=== PATIENT | female | born 1985 | race Caucasian/White ===

== ENCOUNTER 2018-05-04 06:19 | Day surgery (SDC) | payer BC ==
[2018-05-01 14:24] LABS: Absolute Lymphocytes (CBC) 2.2 K/uL (0.7-4.9); Absolute Monocytes 0.5 K/uL (0.1-1.3); Absolute Neutrophil 5.2 K/uL (1.8-8.0); Basophils % 0.9 % (0-1.3); Eosinophils % 1.6 % (0-4.4); Hematocrit 43.8 % (36.0-45.0); Lymphocytes % 27.5 % (15.3-44.8); MPV 8.8 fL (7.6-11.3); Monocytes % 5.8 % (3.3-12.3); RBC Red Blood Cell Count 4.86 M/uL (3.86-4.86)
[2018-05-01 14:37] LABS: Urine Appearance CLEAR; Urine Bilirubin NEGATIVE (NEG); Urine Blood NEGATIVE (NEG); Urine Color YELLOW; Urine Glucose NEGATIVE (NEG); Urine Protein NEGATIVE (NEG)
[2018-05-01 14:38] LABS: Urine Microscopic Reflex NO UMIC
--- OUTSIDE RECORDS SUMMARY | 2018-05-04 06:21 | XMS REPORT | Continuity of Care Document ---
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 Medications Medication Details Route Status Patient Ordering Order Source Instructions Provider Date Allergies, Adverse Reactions, Alerts Substance Category Reaction Severity Reaction Status Date Comments Source type Reported Immunizations Immunization Date Given Site Status Last Comments Source Updated diphtheria/pertus 10/21/2015 Left Deltoid completed [facility] sis, acel/tetanus adult Results Order Name Results Value Reference Date Interpretation Comments Source Range CHEM PANEL Amylase Lvl 42 unit/L 25 - 115 03/31 [facility] CHEM PANEL Alk Phos 72 unit/L 39 - 136 03/31 [facility] CHEM PANEL Albumin Lvl 3.9 g/dL 3.5 - 5.0 03/31 [facility] CHEM PANEL ALT 30 unit/L 0 - 65 03/31 [facility] CHEM PANEL Glucose Lvl 122 mg/dL 70 - 99 03/31 [facility] CHEM PANEL BUN 12 mg/dL 7 - 22 03/31 [facility] CHEM PANEL eGFR 91 03/31 Result Comment: The eGFR is calculated using the CKD-EPI formula. In most young, healthy individuals the eGFR will be >90 mL/ min/1.73m2. The eGFR declines with age. An eGFR of 60-89 may be normal in mL/min/1. /2014 some populations, particularly the elderly, for whom the CKD-EPI formula has not been extensively validated. Use of the eGFR is not recommended in the following populations: [facility] 3m2 Individuals with unstable creatinine concentrations, including patients and those with serious co-morbid conditions. Patients with extremes in muscle mass or diet. The data above are obtained from the National Kidney Disease Education Program (NKDEP) which additionally recommends that when the eGFR is used in patients with extremes of body mass index for purposes of drug dosing, the eGFR should be multiplied by the estimated BMI. CHEM PANEL Calcium Lvl 9.2 mg/dL 8.5 - 10.5 03/31 [facility] CHEM PANEL Bili Total 0.5 mg/dL 0.2 - 1.3 03/31 [facility] CHEM PANEL AST 15 unit/L 0 - 37 03/31 [facility] CHEM PANEL Total 7.3 g/dL 6.4 - 8.4 03/31 [facility] CHEM PANEL Sodium Lvl 141 meq/L 135 - 145 03/31 [facility] CHEM PANEL Potassium 4.2 meq/L 3.5 - 5.1 03/31 Lvl /2014 [facility] CHEM PANEL Creatinine 0.86 mg/dL 0.50 - 03/31 [facility] Lvl 1.40 [facility] CHEM PANEL CO2 28 meq/L 24 - 32 03/31 [facility] CHEM PANEL Chloride Lvl 108 meq/L 95 - 109 03/31 [facility] CHEM PANEL B/C Ratio 14 6 - 25 03/31 [facility]M PANEL Globulin 3.4 g/dL 2.0 - 4.0 03/31 [facility] CHEM PANEL A/G Ratio 1.1 0.7 - 1.6 03/31 /2014 [facility] CHEM PANEL AGAP 9.2 meq/L 10.0 - 03/31 [facility] 20.0 /2014 [facility] CHEM PANEL Lipase Lvl 96 unit/L 73 - 393 03/31 /2014 [facility] HEMATOLOGY Eosinophils 0.1 K/CMM 0.0 - 0.5 03/31 [facility] # /2015 [facility] HEMATOLOGY Monocytes # 0.5 K/CMM 0.0 - 0.8 03/31 /2014 [facility] HEMATOLOGY Lymphocytes 1.6 K/CMM 1.0 - 5.5 03/31 [facility] # /2014 [facility] HEMATOLOGY Segs 66.1 % 45.0 - 12 [facility] 75.0 /2015 [facility] HEMATOLOGY Monocytes 7.5 % 2.0 - 12.0 03/31 /2014 [facility] HEMAT[facility]Y Lymphocytes 24.7 % 20.0 - 12 MH 40.0 /2014 [facility] HEMATOLOGY Eosinophils 1.1 % 0.0 - 4.0 03/31 /2014 [facility] HEMATOLOGY Segs-Bands # 4.2 K/CMM 1.5 - 8.1 03/31 [facility] HEMATOLOGY Basophils 0.6 % 0.0 - 1.0 03/31 [facility] HEMATOLOGY Platelet 231 K/CMM 133 - 450 03/31 [facility] HEMATOLOGY RBC 4.56 M/CMM 4.20 - 03/31 5.40 /2014 [facility] HEMATOLOGY Hct 40.1 % 36.0 - 03/31 48.0 /2014 [facility] HEMATOLOGY MCV 88.0 fL 80.0 - 03/31 98.0 /2014 [facility] HEMATOLOGY Hgb 13.2 g/dL 12.0 - 03/31 16.0 /2014 [facility] HEMATOLOGY MCHC 32.9 g/dL 32.0 - 03/31 36.0 /2014 [facility] HEMATOLOGY MCH 28.9 pg 27.0 - 03/31 31.0 [facility] HEMATOLOGY MPV 7.7 fL 7.4 - 10.4 03/31 [facility] HEMATOLOGY RDW 12.5 % 11.5 - 03/31 14.5 [facility] HEMATOLOGY WBC 6.4 K/CMM 3.7 - 10.4 03/31 [facility] URINE AND UA Spec Grav >=1.030 <=1.030 03/31 [facility] *ABN* (03/31/15 12:56 PM) URINE AND UA Turbidity Slight Cloudy Clear 03/31 [facility] (03/31/15 12:56 PM) URINE AND UA Leuk Est Negative Negative 03/31 [facility] (03/31/15 12:56 PM) URINE AND UA Nitrite Negative Negative 03/31 [facility] (03/31/15 12:56 PM) URINE AND UA 0.2 EU/dL 0.1 - 1.0 03/31 [facility] Urobilinogen [facility] URINE AND UA Blood Negative Negative 03/31 [facility] (03/31/15 12:56 PM) URINE AND UA Bili Negative Negative 03/31 [facility] *NA* (03/31/15 12:56 PM) URINE AND UA Ketones Trace Negative 03/31 [facility] *ABN* (03/31/15 12:56 PM) URINE AND UA Glucose Negative Negative 03/31 [facility] (03/31/15 12:56 PM) URINE AND UA Protein Negative Negative 03/31 [facility] (03/31/15 12:56 PM) URINE AND UA pH 6.0 5.0 - 8.0 03/31 [facility] URINE AND UA Color Yellow Yellow 03/31 [facility] *NA* (03/31/15 12:56 PM) URINE AND UA WBC None Seen None Seen 03/31 [facility] (03/31/15 12:56 PM) URINE AND UA RBC None Seen 0 - 2 03/31 [facility] (03/31/15 12:56 PM) URINE AND UA Bacteria Occasional None Seen 03/31 [facility] /HPF /HPF [facility] URINE AND UA Mucus Rare /LPF None Seen 03/31 [facility] /LPF [facility] URINE AND UA Sq Epi Occasional Few /LPF 03/31 [facility] /LPF [facility] URINE CHEM U Preg Negative Negative 03/31 [facility] (03/31/15 12:56 PM) ED ED Name: ANURAG HAJI 03/31 - Abdomen/Pe Abdomen/Pelv - [facility] lvis IV is IV : [address] only CT Read by: Amadeo Roe MD Dictated Date/time: 03/31/15 14:22 Ordering Physician: Van Higuera Electronically Signed by: Amadeo Roe MD 03/31/15 14:27 FINAL REPORT ED Abdomen/Pelvis IV contrast only CT : Mar 31, 2015 12:42:00 PM. CLINICAL INDICATION: Abdominal pain, acute Comparison Examination: None. TECHNIQUE: Sequential trans-axial images were obtained with a multi- detector helical CT after intravenous administration of 100 cc of Omnipaque iodinated contrast. GI contrast was not administered. Coronal and sagittal reconstructions were performed and provided as separate series. Total JRO=744.9 mGy/cm FINDINGS: CT ABDOMEN WITH CONTRAST: The visualized lung bases are clear and there are no effusions. The heart is normal in size with a trace pericardial effusion. The liver, spleen, pancreas, gallbladder, kidneys, and adrenals appear within normal limits. There is no free intraperitoneal air or fluid. There are no distended loops of small bowel. No mesenteric adenopathy is appreciated. CT PELVIS WITH CONTRAST: The colon is relatively decompressed. The rectum, sigmoid, and urinary bladder are otherwise unremarkable. There is no free pelvic fluid or pelvic lymphadenopathy. The uterus and adnexa are unremarkable on CT assessment. The appendix is normal in caliber with no surrounding inflammatory changes. No acute bony abnormality is noted. IMPRESSION: No acute abnormality of the abdomen or pelvis is noted. SL: 24 Vital Signs Vital Sign Value Date Comments Source Systolic (mm Hg) 122 03/31/2015 [facility] Diastolic (mm Hg) 70 03/31/2015 [facility] Temperature Oral (F) 97.8 F 03/31/2015 [facility] Heart Rate 61 03/31/2015 [facility] Respitory Rate 16 03/31/2015 [facility] BMI Calculated 31.54 03/31/2015 [facility] Height 172.72 cm 03/31/2015 [facility] Weight 94.091 03/31/2015 [facility] Systolic (mm Hg) 135 03/31/2015 [facility] Diastolic (mm Hg) 81 03/31/2015 [facility] Temperature Oral (F) 97.7 F 03/31/2015 [facility] Respitory Rate 16 03/31/2015 [facility] Heart Rate 80 03/31/2015 [facility] Encounters Location Location Encounter Encounter Reason Attending ADM DC Status Source Details Type Number For Provider Date Date Visit [place] EC [id number] Van Higuera 03/31 03/31 [facility]2014 [facility] Asha [id number] Frances 08/01 08/01 [facility] /2017 [facility] Procedure Code Date Perfomer Comments Source BKA - Below knee [id number] 10/21/2015 [facility] amputation Tonsillectomy [id number] [facility]
[2018-05-04] MEDS ORDERED: Ringers Lactate 1,000 ML IV ONE (07:05)
[2018-05-04] MEDS ORDERED: PROPOFOL 200 MG/20 ML VIAL IV ONE (07:10)
[2018-05-04] MEDS ORDERED: ROCURONIUM 50 MG/5 ML VIAL IV ONE ×2 (07:10→08:49)
[2018-05-04] MEDS ORDERED: GLYCOPYRROLATE 0.2 MG/ML SYR ONE (07:11)
[2018-05-04] MEDS ORDERED: DEXAMETHASONE 10 MG/ML VIAL ONE (07:12)
[2018-05-04] MEDS ORDERED: FENTANYL CITR 250 MCG/5 ML ONE (07:12)
[2018-05-04] MEDS ORDERED: LIDOCAINE 2% MPF 5 ML VIAL ONE (07:12)
[2018-05-04] MEDS ORDERED: MIDAZOLAM HCL 2 MG/2 ML INJ ONE (07:13)
[2018-05-04] MEDS ORDERED: ONDANSETRON 4 MG/2 ML VIAL ONE ×2 (07:13→09:57)
[2018-05-04] MEDS ORDERED: FENTANYL CITR 100 MCG/2 ML ONE (08:49)
[2018-05-04] MEDS ORDERED: MORPHINE 10 MG/ML VIAL ONE (08:50)
[2018-05-04] MEDS: NA CHLORIDE 0.9% 1,000 ML ONE ×2 (08:50→09:15)
[2018-05-04] MEDS ORDERED: KETOROLAC 30 MG/ML INJ ONE (09:57)
[2018-05-04] MEDS ORDERED: NEOSTIGMINE 1 MG/ML -5 ML SYRINGE ONE (09:57)
[2018-05-04] MEDS ORDERED: EPHEDRINE SULF 50 MG/ML VIAL ONE (10:33)
[2018-05-04] MEDS ORDERED: Mastisol Adhesive Liq ONE (10:34)
[2018-05-04] MEDS ORDERED: PROMETHAZINE 25 MG/ML VIAL ONE (11:05)
[2018-05-04] MEDS ORDERED: SCOPOLAMINE HYDROBROMIDE PATCH TD ONE (11:07)
[2018-05-04] MEDS: MEPERIDINE HCL 50 MG/ML AMP ONE ×2 (11:14→11:19)
[2018-05-04] MEDS ORDERED: HYDROCODONE/APAP 5/325 MG TAB ONE (12:25)
--- NOTE | 2018-05-04 22:55 | OP ---
Date of Procedure: 05/04/2018 Surgeon: Magdalena Love MD Lathe Machinist: Kelly Gonzalez. Preoperative Diagnoses: Heavy periods with regular cycles, AUB-O/E/A, secondary dysmenorrhea, morbid obesity, smoker. Postoperative Diagnoses: Heavy periods with regular cycles, AUB-O/E/A, secondary dysmenorrhea, morbi d obesity, smoker and extensive endometriosis. Procedures Performed: 1.Diagnostic hysteroscopy, polypectomy, and D and C with Symphion. 2.Diagnostic laparoscopy endometriosis excision including the removal of rectovaginal septum nodule and repair of the rectovaginal septum. 3.Left ureterolysis. Estimated Blood Loss: Minimal. Specimens: Right lateral wall, right uterosacral; rectovaginal septum; left uterosacral, left latera l wall/periureteric and endometrial curettings with polyps. Complications: None. Drains: None. Condition: Stable. Indications: The patient is a 32-year-old, 0, who presented to me with history of heavy mens trual bleeding and associated severe dysmenorrhea. After examination, the patient had a small uterus , mostly unremarkable. No adnexal masses were palpable. A transvaginal ultrasound was done. She sloan d endometrial stripe of 1.4 and 1.5 cm. She had an endometrial stripe that was thick. Since she has risk factors for uterine and for endometrial pathology, hysteroscopy was performed for evaluation of the cavity. Once this was done, curettings were performed. No evidence of any atypia or malignancy was seen. The patient was then offered the options of treatment of bleeding with Mirena IUD. She i s very close to being 33 and is a smoker, so oral contraceptives are not likely a long-term alternati ve at all unless the patient really quits at this current time. So we talked about depot medroxyprog esterone injection, which she did not like the idea of gaining weight as a side effect. Progesterone only pills were discussed as well; however, given the severity of dysmenorrhea, the patient thought that her pain was much worse and her bleeding, so we discussed the options of laparoscopy and diagnos is of endometriosis if present and then resection, followed by IUD placement. Once she agreed to thi s, then she was brought into the OR; however, the patient had changed her mind about the IUD, so she is having currently second thoughts; however, since the pain is a leading symptom, plan was to procee d with a laparoscopy and that is what the patient wanted as well. Description Of Procedure: After informed consent was verified, she was taken back to the OR, placed in supine fashion on the operating table. After general anesthesia was given, placed in dorsal litho heidi position. Pelvic exam performed. Arms were both tucked by the side. The right lower extremity was the 1 that had a below-knee amputation, so this was placed in the stirrup and taped appropriatel y, slightly higher than normal pressure at the level of the thigh. However, in order to stabilize th e limb in the stirrup while I performed my surgery, we had to tape this in the stirrup carefully cush ioning using a crate. SCDs were started on the left lower extremity and then a pelvic exam performed . Uterus appeared to be mobile and may anteflex, may be first-degree retroflexed, however no other a bnormalities were noted. After abdomen, vulva, vagina and perineum were prepped and draped in a sterile fashion, Fernández was michael ehnrry to drain the bladder. Speculum used to expose the cervix. Anterior lip grasped with 2 Allis cla mps. It was very difficult to introduce the uterine manipulators at this time. I left this in place and the Fernández was attached to the cysto tubing. This area was draped. The plan was to come back an d place the VCare without any chance of perforation. A 1 cm infraumbilical incision was made with a scalpel. Fascia incised, tagged with 0 Vicryl sutures . Peritoneum entered bluntly with S retractors. Jenna introduced. Site of entry was checked and w as unremarkable, fixed in place with the tags attached. Upper abdominal surface was completely unrem arkable. Liver, gallbladder, and the omentum including peritoneal surfaces were all normal. Placing the patient in Trendelenburg position, a 5 mm left lower quadrant and right lower quadrant and supra pubic ports were placed under direct vision. Once the right lower quadrant port was placed after the surgery was done, confirming endometriosis. Then, once the uterine orientation was visualized, whic h appeared to be retroflexed, the Ray tip. Attempt was made to introduce the VCare, but this was not possible, so a slimline hysteroscope was used to visualize through the cervical canal and then enter the uterine cavity under direct vision. Once this cavity was entered, the Pap was configured and di lated to 16-Serbian and the VCare introduced. This was fixed in place. This area was draped. After survey of the pelvic cavity, there were gross implants of endometriosis in the right lateral wa ll immediately superior and lateral to the distal attachment, distal most aspect of the uterosacral l igament in between the uterine artery and the distal uterosacral. There were implants infiltrating t he uterosacral as well. The ureter was visualized inferiorly and the implants were not close to it. The implants in the posterior cul-de-sac were on the rectovaginal septum and this appeared to be a no dular lesion, not full thickness but involving the rectovaginal septum. On the left side, left lateral wall, periureteric area were all involved with nodular endometriosis. There was proximal and distal uterosacral ligament endometriosis as well. So, plan was to perform a ureteric dissection, separate the ureter away from the implants and then take the implants out. A 5 mm LigaSure and monopolar Storz needle were used for performing the endometriosis excision, mostl y with the monopolar needle. The epiploica of the bowel were picked up with the help of 3-0 Monocryl sutures, so started the endom etriosis excision on the right side. The peritoneum was picked up proximal to the implant on the rig ht lateral wall, superolateral to the ureter. This was incised with the monopolar once the gas was a llowed to get in there. There was dissection that was performed, opened up the entire lesion by inci sing the peritoneum inferiorly about 5-10 mm away from the outer edge. Dissection was carried to sep arate the uterine artery laterally and then the ureter at the level of the ureteric tunnel in the dis mary jane 3 cm right underneath the crossing and dissecting this laterally, the implant away. T hen, the implant was removed with a monopolar Storz needle. Then, the posterior rectovaginal septum nodule was to be removed. So, linear incision was made across the peritoneum on the rest of the rect ovaginal septum towards the vaginal side. Then, dissection was performed with curved [place]'s to o pen up the peritoneum, all the run where the peritoneum was free and not nodular. This was done in a circumferential fashion. I had to dissect with the monopolar needle muscularis of the rectovaginal septum in order for this to do. However, I did not open the epithelium of the rectovaginal septum. An EEA Sizer medium was placed into the rectum. After ensuring the distance between the rectum and t he device, both the planes were developed using the LigaSure as well as the curved tip [place]. Tho ugh the nodule was resected with the monopolar and bipolar energy devices and , the bowel ap peared to be completely unremarkable. 3-0 Vicryl sutures on an FH needle were placed in a figure-of-e ight fashion but we are reapproximating the edges of the muscularis, the rectovaginal septum off the posterior wall of the vagina including the peritoneal surfaces. A buried [id number] was placed to bring the tissues together. Attention was directed to endometriosis implants on the left lateral wall. The ureter was dissected starting about 5-7 cm from the ureteric tunnel to open up the peritoneum laterally and superiorly. T hen dissection was performed to separate the medial leaf of the broad ligament. First what was visib le was the endometrial implant was possibly adhered to possibly the ureter, so on dissecting from the level of the uterine artery going inferiorly, I could visualize the ureter. This ureter was traced superiorly by dissecting it away from the medial leaf of the broad ligament and once this was done at the level of the implant, I could see that the vessels were growing into it. Here the vessel medial to the ureter and superior was taken down with the help of the LigaSure and this was away from the medial leaf of the broad ligament exposing the ureter. The ureter was then dissected latera lly and then the endometriosis implant was removed. There was endometriosis implant on the distal ut erosacral ligament. This was also opened up carefully making sure that the uterine artery was not to uched. There was very minimal to no bleeding during this procedure. After finishing the removal of this implant, attention was directed to the posterior left wall between the uterosacral and the bowel in the pararectal space. This nodule was picked up and cauterized with the bipolar LigaSure. After all the specimens were retrieved, the pictures of the operated areas were taken. The ureter had no evidence of electrical, mechanical or thermal injury to itself. So, I was able to finish the endomet riosis excision and then thorough irrigation and suction were performed. Pictures were taken. The b owel was released with the 3-0 Monocryl. All the trocars were removed under direct vision after thor ough irrigation and suction were performed. There was excellent hemostasis. All visible endometrios is was excised. After desufflating the abdomen, the Jenna was removed after gas was desufflated. Fascia closed with 0 Vicryl by tying at both ends after the fascia was intact. All skin incisions closed with the help of interrupted Monocryls. Speculum placed to expose the cervix and grasped with 2 Allis clamps. After the VCare was removed, I went on to place the MyoSure device and its scope, it would not go in, so a mean arterial pressure w as set at 100 with the MAP running between 70s to 80s and dissection was done with the normal saline of the entire endometrial canal until it was clear and cleaned, fully shaved. The specimens were ret rieved and handed out for permanent pathology. All instrument, needle and sponge counts were done an d were correct at the end of the case. The patient tolerated the procedure well. She will follow up with me in 1 week. Findings discussed with her partner. EMILY/CARMEN Voice ID: [id number] Report ID: [id number]
== END 2018-05-04 13:44 | disposition home or self-care (01) ==
LOC: OR 06:19
PROVIDERS: ATTEND Obstetrics & Gynecology
PROC: 0UDB7ZX Extraction of Endometrium, Via Natural or Artificial Opening, Diagnostic (ICD-10-PCS; 2018-05-04)
PROC: 0UB44ZZ Excision of Uterine Supporting Structure, Percutaneous Endoscopic Approach (ICD-10-PCS; 2018-05-04)
PROC: 0DBP4ZZ Excision of Rectum, Percutaneous Endoscopic Approach (ICD-10-PCS; 2018-05-04)
PROC: 0DBW4ZZ Excision of Peritoneum, Percutaneous Endoscopic Approach (ICD-10-PCS; 2018-05-04)
PROC: 0TB74ZZ Excision of Left Ureter, Percutaneous Endoscopic Approach (ICD-10-PCS; 2018-05-04)
PROC: 0TN74ZZ Release Left Ureter, Percutaneous Endoscopic Approach (ICD-10-PCS; 2018-05-04)
PROC: 0UB98ZX Excision of Uterus, Via Natural or Artificial Opening Endoscopic, Diagnostic (ICD-10-PCS; principal; 2018-05-04 07:30)
DX: N92.0 Excessive and frequent menstruation with regular cycle (principal); N94.5 Secondary dysmenorrhea; N84.0 Polyp of corpus uteri; N80.4 Endometriosis of rectovaginal septum and vagina; N80.3 Endometriosis of pelvic peritoneum; N80.8 Other endometriosis; E66.01 Morbid (severe) obesity due to excess calories; Z68.34 Body mass index [BMI] 34.0-34.9, adult; Z80.8 Family history of malignant neoplasm of other organs or systems
CPT/HCPCS: 36415; 81003; 81025; 85025; 86850; 86900; 86901; 88305; J1100; J2175; J2250; J2405; J2550; J2704; J2710; J3010; J7030